=== PATIENT | male | born 2000 | race Caucasian/White ===

== ENCOUNTER 2023-07-06 13:17 | Emergency (ER) | payer OTHER, SELFPAY ==
[2023-07-06 14:09] VITALS: BP 145/84; PULSE 100; RESP 18; TEMP 36.5; O2SAT 98; BMI 51.9
--- NOTE | 2023-07-06 14:09 | ED_ITS ---
HPI - General Adult General Chief complaint: Skin/Abscess/Foreign Body Stated complaint: Cyst Buttock Area Time Seen by Provider: 07/06/23 17:58 Source: patient and director corporate compliance Mode of arrival: ambulatory Limitations: no limitations History of Present Illness HPI narrative: 22-year-old male presents to the ER for evaluation of a lesion on his buttocks that has been present for the last year. He states over the last week it has been more painful, red and is draining a red/brown material. He states it is it is bothersome for the last 5 months and he has an appointment with the surgeon next week. He states over the last year and has self drained several times but then fills back up. He denies any fever or chills. He denies any injury to the area. No recent antibiotics. No nausea, vomiting, abdominal pain. He states the pain has been affecting his work. He has hard time bending down due to pain. MD complaint: Buttock abscess/cyst Onset (ago): month(s) Location: buttocks Severity: severe Severity scale (1-10): 9 Quality: stabbing and aching Pain Consistency: intermittent Relieving factors: rest Exacerbating factors: movement Associated symptoms: denies other symptoms Treatments prior to arrival: none Related Data Previous Rx's Medication Instructions Recorded cephalexin 500 mg capsule 500 mg PO Q6H 7 days #28 caps 07/06/23 doxycycline hyclate 100 mg tablet 100 mg PO BID #14 tabs 07/06/23 hydrocodone 5 mg-acetaminophen 325 1 tab PO Q12H PRN severe pain 07/06/23 mg tablet (scale score 7-10) #6 tabs ibuprofen 600 mg tablet 600 mg PO Q8H PRN pain #14 tabs 07/06/23 Allergies Allergy/AdvReac Type Severity Reaction Status Date / Time No Known Allergies Allergy Verified 07/06/23 14:14 Review of Systems Review of Systems: Yes all other systems are reviewed and are negative PMFSH Social History Social History Alcohol intake: never Smoked in Last 30 Days: No Use of substances other than those prescribed or required for medical reasons: No Advance Directives: No Advance Directives Information Provided: No Physical Exam ED Vital Signs: Vital Signs - 24 hr 07/06/23 14:09 Temperature 97.7 F Pulse Rate 100 Respiratory Rate 18 Blood Pressure 145/84 H Pulse Oximetry 98 Oxygen Delivery Method Room Air BMI result Body Mass Index 51.9 Appearance: Alert. Oriented X3. No acute distress. Head: normocephalic, atraumatic. Eyes: Pupils equal, round and reactive to light. ENT: Pharynx normal. No tonsillar swelling or exudate. Neck: Normal inspection. Neck supple. CVS: Normal heart rate and rhythm. Pulses normal. Respiratory: No respiratory distress. Breath sounds normal. Abdomen: Obese Soft and nontender. +BS x4 Skin: Skin warm and dry. Normal skin color. Normal skin turgor. No rashes. Superior portion of the gluteal cleft with a small, 1.5cm around area of raised, hyperpigmented skin with 2 areas of bloody drainage. Just distal to this there is another erythematous lesion with central fluctuance in active drainage of dark red blood, no purulent material. Mild surrounding erythema and warmth. Extremities: No lower extremity edema. No joint swelling. Neuro/psych: Oriented X 3. Grossly normal, nonfocal Course Course Course Narrative: RME- 22 year old male presents for evaluation of an inflamed cyst by his buttocks. He reports he has had a cyst in the area for about 5 months but since last night it has been swollen and painful with drainage. Not visualized in triage Medical Decision Making Medical Decision Making MDM Narrative: 22-year-old male with history of obesity presents to the ER for evaluation of a draining cyst on his buttock for the last year. He states that has waxed and waned and self drained several times. The last few days been significantly more painful with bloody drainage. On exam it is already self draining. No significant areas of fluctuance or induration. No indication for incision and drainage today. Will start on empiric antibiotics until he can see his surgeon next week. Patient agrees with the plan and is stable for discharge home Differential Diagnosis Differential Diagnoses: The differential diagnosis associated with the presentation includes Pilonidal cyst, abscess, cellulitis, no evidence of perirectal abscess Prescription Management I considered prescription management with: Pain Medication and Antibiotic Critical Care Time Critical Care Time Critical Care Time: No Discharge Plan Discharge Clinical Impression: Pilonidal cyst Patient Disposition: Home, Self-Care Instructions: Pilonidal Cyst (ED), Pilonidal Cyst Excision (DC) Additional Instructions: Use warm compresses to the area several times per day. You can also take warm Sitz baths to help with pain and facilitate additional drainage. Take the prescribed antibiotics as directed, complete the entire course and do not miss any doses Take the prescribed ibuprofen as needed for [id number] pain. Take the prescribed hydrocodone as needed for severe pain only. Do not drive after taking this medication. Follow-up follow up with the surgeon next week as scheduled. If you develop new or worsening symptoms call 911 or come back to the ER for further evaluation. Use compresas tibias en el ?jerzy varias veces al d?a. Tambi?n puede amelia ba?os de asiento tibios para ayudar con el dolor y facilitar el drenaje adicional. [place] los antibi?ticos recetados seg?n las indicaciones, complete todo el tratamiento y no omita ninguna dosis. [place] el ibuprofeno recetado seg?n sea necesario para el dolor leve a moderado. [place] la hidrocodona recetada seg?n sea necesario s?lo para el dolor intenso. No conduzca despu?s de amelia abel medicamento. Seguimiento de seguimiento con el cirujano la pr?xima semana seg?n lo programado. Si desarrolla s?ntomas nuevos o que empeoran, llame al 911 o regrese a la nayeli de emergencias para oma evaluaci?n adicional. Prescriptions: New cephalexin 500 mg capsule 500 mg PO Q6H 7 Days Qty: 28 0RF doxycycline hyclate 100 mg tablet 100 mg PO BID Qty: 14 0RF hydrocodone-acetaminophen 5-325 mg tablet 1 tab PO Q12H PRN (Reason: severe pain (scale score 7-10)) Qty: 6 0RF Rx Instructions: Partial Fill upon patient request. ibuprofen 600 mg tablet 600 mg PO Q8H PRN (Reason: pain) Qty: 14 0RF Referrals: [facility] [Primary Care Provider] - Stand Alone Forms: Work/School Release Interventions: ED Discharge Assessment Last Done: 07/06/23 18:58 Discharge Date/Time: 07/06/23 18:59 Print Language: [place]
== END 2023-07-06 18:59 | disposition home or self-care (01) ==
PROVIDERS: Emergency Provider Emergency Medicine
DX: L05.91 Pilonidal cyst without abscess (principal); E66.01 Morbid (severe) obesity due to excess calories; Z68.43 Body mass index [BMI] 50.0-59.9, adult
CPT/HCPCS: 99283; 99284